=== PATIENT | female | born 1945 | race Caucasian/White ===

== ENCOUNTER 2021-09-20 21:41 | Emergency (ER) | payer BC ==
[~2021-09-20] VITALS: Ht 170.2 cm; Wt 90.7 kg
[2021-09-20 21:59] VITALS: BP 128/57
--- NOTE | 2021-09-20 22:00 | NUR ---
[id number] FROM HOME C/O GENERALIZED WEAKNESS "KEEPS FALLING OUT OF BED" RECENTLY DISCHARGED EARLY FROM REHAB UPON PT'S REQUEST. S/P LEFT FEMUR FX (07/2021). PLACED COMFORTABLY IN BED. VITALS CHECKED.
--- NOTE | 2021-09-20 22:35 | NUR ---
SEEN BY DR MORAN AT ER.
--- NOTE | 2021-09-20 22:40 | NUR ---
PT WILL BE DISCHARGE HOME. PT NEEDS TO HAVE AN APPOINTMENT WITH HER OWN PCP ON THURSDAY TO SET UP TRANSFER TO A CARE HOME TO HELP HER WITH ADL'S SINCE PT HAS ISSUES WITH GETTING UP FROM BED AND CHAIR. EDUCATION DONE TO PT. EMT WILL ARRANGE TRANSPORTATION FOR PT HOME.
--- NOTE | 2021-09-21 01:37 | NUR ---
PT WILL BE TRANSPORTED HOME IN 30 MINS VIA [facility].
--- NOTE | 2021-09-21 02:14 | NUR ---
REPORT GIVEN TO RG CRANE OF [id number].
--- NOTE | 2021-09-21 02:33 | NUR ---
Patient discharged to home in stable condition. Written and verbal after care instructions given. Patient verbalizes understanding of instruction.
== END 2021-09-21 02:34 | disposition home or self-care (01) ==
LOC: EDSEX 22:18 → ER 22:18
DX: Z00.00 Encounter for general adult medical examination without abnormal findings (principal); E11.9 Type 2 diabetes mellitus without complications